=== PATIENT | male | born 1975 | race American Indian/Alaskan Native ===

== ENCOUNTER 2020-12-03 18:48 | Emergency (ER) | payer MEDICAID ==
[~2020-12-03] VITALS: Ht 188 cm; Wt 102.3 kg
[2020-12-03 19:04] VITALS: BP 150/105
== END 2020-12-03 19:11 | disposition home or self-care (01) ==
LOC: ER 18:51
DX: Z02.89 Encounter for other administrative examinations (principal); F12.90 Cannabis use, unspecified, uncomplicated
CPT/HCPCS: 99281